=== PATIENT | female | born 1950 | race Caucasian/White ===

== ENCOUNTER 2017-11-28 08:44 | Day surgery (SDC) | payer MEDICARE ==
[~2017-11-28] VITALS: Ht 160 cm; Wt 56.4 kg
[~2017-11-28 08:44] MED LIST: CYAN250010 PO; IBUP-2071 PO; NAPR-58 PO; OMEP20 PO; VITAD1000 PO
[2017-11-28 09:26] LABS: ANION GAP 7 mmol/L (8-16); CARBON DIOXIDE 31 mmol/L (22-29); CHLORIDE 106 mmol/L (98-107); CREATININE 0.89 mg/dL (0.60-1.30); GLOMERULAR FILTR. RATE CALC > 60 mL/min (>60); GLUCOSE,RANDOM 86 mg/dL (70-110); POTASSIUM 4.8 mmol/L (3.5-5.1); SODIUM SERUM 144 mmol/L (136-145); UREA NITROGEN, BLOOD 16 mg/dL (7-18)
[2017-11-28] MEDS ORDERED: 0.9% SODIUM CHLORIDE 10 ML SYRINGE IVP PRN (09:30)
[2017-11-28] MEDS ORDERED: METOPROLOL TARTRATE 50 MG TABLET PO PRN (09:30)
[2017-11-28] MEDS ORDERED: MethylPREDNISolone SOD SUCC 125 MG/2 ML VIAL ONE (10:12)
[2017-11-28] MEDS ORDERED: DiphenhydrAMINE HCL 50 MG/ML VIAL ONE (10:13)
[2017-11-28] MEDS ORDERED: SODIUM CHLORIDE 0.9% 100 ML ONE (10:38)
[2017-11-28] MEDS ORDERED: IOVERSOL 350 MG/ML 150 ML VIAL ONE (10:38)
[2017-11-28] MEDS ORDERED: DiphenhydrAMINE HCL 50 MG/ML VIAL IVP ONE (10:45)
[2017-11-28] MEDS ORDERED: MethylPREDNISolone SOD SUCC 125 MG/2 ML VIAL IVP ONE (10:45)
[2017-11-28] MEDS ORDERED: METOPROLOL TARTRATE 5 MG/5 ML VIAL ONE (11:21)
[2017-11-28] MEDS ORDERED: NITROGLYCERIN 400 MCG/SUBLINGUAL SPRAY 4.9 GM BOTTLE SL ONE ×2 (11:21→11:42)
== END 2017-11-28 12:30 | disposition home or self-care (01) ==
LOC: SDS 08:44 → EDSTATUS 11:00 → SDS 12:30
PROVIDERS: ATTEND Internal Medicine Cardiovascular Disease
DX: I20.8 Other forms of angina pectoris (principal); M47.814 Spondylosis without myelopathy or radiculopathy, thoracic region; K21.9 Gastro-esophageal reflux disease without esophagitis; E78.5 Hyperlipidemia, unspecified; E55.9 Vitamin D deficiency, unspecified; F12.90 Cannabis use, unspecified, uncomplicated; J45.998 Other asthma; Z86.73 Personal history of transient ischemic attack (TIA), and cerebral infarction without residual deficits; Z79.1 Long term (current) use of non-steroidal anti-inflammatories (NSAID); Z79.891 Long term (current) use of opiate analgesic; Z72.89 Other problems related to lifestyle; Z91.013 Allergy to seafood; Z90.49 Acquired absence of other specified parts of digestive tract; Z98.890 Other specified postprocedural states; Z79.899 Other long term (current) drug therapy
CPT/HCPCS: 36415; 75574; 80048; 93005; J7050; Q9967; J1200; J2930; J3490